=== PATIENT | female | born 1970 | race Caucasian/White ===

== ENCOUNTER → 2017-04-13 | Outpatient (CLI) | payer OTHER ==
[~2017-04-13] MED LIST: ASPI81CH PO; BUPR75 PO; GABA100; LITH300C
[2017-04-13 14:49] LABS: BASOPHILS ABSOLUTE AUTO 0.06 K/mm3 (0.00-0.23); BASOPHILS PERCENT AUTO 1 % (0-2); EOSINOPHILS ABSOLUTE AUTO 0.07 K/mm3 (0.00-0.68); EOSINOPHILS PERCENT AUTO 1 % (0-6); Hematocrit 44.8 % (33.0-51.0); Hemoglobin 15.1 g/dL (11.5-16.0); IMMATURE GRAN ABSOLUTE AUTO 0.05 K/mm3 (0.00-0.10); IMMATURE GRAN PERCENT AUTO 0 % (0-1); LYMPHOCYTES ABSOLUTE AUTO 1.11 K/mm3 (0.84-5.20); LYMPHOCYTES PERCENT AUTO 9 % (21-46); MONOCYTES ABSOLUTE AUTO 0.58 K/mm3 (0.16-1.47); MONOCYTES PERCENT AUTO 5 % (4-13); Mean Corpuscular HGB 32.3 pg (26.0-34.0); Mean Corpuscular HGB Conc 33.7 g/dL (31.5-36.5); Mean Corpuscular Volume 96 fL (80-100); Mean Platelet Volume 9.2 fL (9.1-12.4); NEUTROPHILS ABSOLUTE AUTO 10.43 K/mm3 (1.96-9.15); NEUTROPHILS PERCENT AUTO 85 % (41-73); Platelet Count 355 K/mm3 (150-400); RDW Coefficient Variation 13.2 % (11.7-14.2); RDW Standard Deviation 46.9 fL (35.1-46.3); Red Blood Cell Count 4.67 M/mm3 (3.80-5.20)
[2017-04-13 15:20] LABS: Alanine Aminotransfer (ALT/SGP 14 U/L (12-78); Albumin, Blood 4.1 g/dL (3.4-5.0); Albumin/Globulin Ratio 1.2 (0.8-1.8); Alk Phos 63 U/L (40-126); Anion Gap 11 mmol/L (6-16); Aspartate Aminotrans (AST/SGOT 12 U/L (12-37); Blood Urea Nitrogen 3 mg/dL (8-24); Bun/Creatinine Ratio 3.8 (12.0-20.0); CO2, Blood 21 mmol/L (21-32); Calcium, Blood 9.3 mg/dL (8.5-10.1); Chloride, Blood 105 mmol/L (98-108); Creatinine, Blood 0.78 mg/dL (0.40-1.00); Globulin, Blood 3.3 g/dL (2.2-4.0); Glomerular Filtration Rate >60 (60-); Glucose, Blood 77 mg/dL (70-99); Potassium, Blood 3.5 mmol/L (3.5-5.5); Sodium, Blood 137 mmol/L (136-145); Thyroid Stimulating Hormone 1.732 uIU/mL (0.360-4.800); Total Protein, Blood 7.4 g/dL (6.4-8.2)
== END | disposition home or self-care (01) ==
LOC: LAB SHORT 14:42
PROVIDERS: Family Medicine
DX: R55 Syncope and collapse (principal)
CPT/HCPCS: 80053; 84443; 85025

== ENCOUNTER → 2017-08-13 | Outpatient (CLI) | payer OTHER | END | disposition home or self-care (01) | LOC: OLS 11:41 → LAB SHORT 11:41 | PROVIDERS: Nurse Practitioner Women's Health | DX: Z12.72 Encounter for screening for malignant neoplasm of vagina (principal); Z91.89 Other specified personal risk factors, not elsewhere classified | CPT/HCPCS: 87624; G0123 ==

== ENCOUNTER → 2017-11-07 | Outpatient (CLI) | payer OTHER ==
[2017-11-07 11:23] LABS: Alanine Aminotransfer (ALT/SGP 47 U/L (12-78); Albumin, Blood 3.4 g/dL (3.4-5.0); Alk Phos 58 U/L (50-136); Anion Gap 9 mmol/L (6-16); Aspartate Aminotrans (AST/SGOT 28 U/L (12-37); Bilirubin, Total 0.2 mg/dL (0.1-1.0); Blood Urea Nitrogen 10 mg/dL (8-24); Bun/Creatinine Ratio 15.3 (12.0-20.0); CO2, Blood 24 mmol/L (21-32); Calcium, Blood 8.7 mg/dL (8.5-10.1); Chloride, Blood 111 mmol/L (98-108); Creatinine, Blood 0.66 mg/dL (0.40-1.00); Globulin, Blood 3.5 g/dL (2.2-4.0); Glomerular Filtration Rate >60 (60-); Glucose, Blood 82 mg/dL (70-99); Potassium, Blood 4.7 mmol/L (3.5-5.5); Sodium, Blood 144 mmol/L (136-145); Total Protein, Blood 6.9 g/dL (6.4-8.2)
== END ==
LOC: LAB SHORT 10:44 → LAB 10:44
PROVIDERS: Internal Medicine Hematology & Oncology
DX: M81.0 Age-related osteoporosis without current pathological fracture (principal)
CPT/HCPCS: 80053

== ENCOUNTER 2018-06-06 17:59 | Emergency (ER) | payer OTHER ==
[~2018-06-06] VITALS: Ht 157.5 cm; Wt 70.3 kg
[2018-06-06 18:36] LABS: BASOPHILS ABSOLUTE AUTO 0.05 K/mm3 (0.00-0.23); BASOPHILS PERCENT AUTO 1 % (0-2); EOSINOPHILS ABSOLUTE AUTO 0.23 K/mm3 (0.00-0.68); EOSINOPHILS PERCENT AUTO 3 % (0-6); Hematocrit 44.1 % (33.0-51.0); Hemoglobin 14.8 g/dL (11.5-16.0); IMMATURE GRAN ABSOLUTE AUTO 0.03 K/mm3 (0.00-0.10); IMMATURE GRAN PERCENT AUTO 0 % (0-1); LYMPHOCYTES ABSOLUTE AUTO 1.99 K/mm3 (0.84-5.20); LYMPHOCYTES PERCENT AUTO 24 % (21-46); MONOCYTES ABSOLUTE AUTO 0.75 K/mm3 (0.16-1.47); MONOCYTES PERCENT AUTO 9 % (4-13); Mean Corpuscular HGB 34.3 pg (26.0-34.0); Mean Corpuscular HGB Conc 33.6 g/dL (31.5-36.5); Mean Corpuscular Volume 102 fL (80-100); Mean Platelet Volume 9.6 fL (9.1-12.4); NEUTROPHILS ABSOLUTE AUTO 5.13 K/mm3 (1.96-9.15); NEUTROPHILS PERCENT AUTO 63 % (41-73); Platelet Count 235 K/mm3 (150-400); RDW Coefficient Variation 12.8 % (11.7-14.2); RDW Standard Deviation 48.2 fL (35.1-46.3); Red Blood Cell Count 4.32 M/mm3 (3.80-5.20); White Blood Cell Count 8.18 K/mm3 (4.00-11.30)
[2018-06-06 18:59] LABS: Alanine Aminotransfer (ALT/SGP 24 U/L (12-78); Albumin, Blood 2.9 g/dL (3.4-5.0); Albumin/Globulin Ratio 0.8 (0.8-1.8); Alk Phos 57 U/L (50-136); Anion Gap 4 mmol/L (6-16); Aspartate Aminotrans (AST/SGOT 25 U/L (12-37); Bilirubin, Total 0.4 mg/dL (0.1-1.0); Blood Urea Nitrogen 9 mg/dL (8-24); Bun/Creatinine Ratio 12.6 (12.0-20.0); CO2, Blood 27 mmol/L (21-32); Calcium, Blood 8.1 mg/dL (8.5-10.1); Chloride, Blood 109 mmol/L (98-108); Creatinine, Blood 0.72 mg/dL (0.40-1.00); Ethanol (Alcohol), Blood, Med <3 mg/dL; Globulin, Blood 3.7 g/dL (2.2-4.0); Glomerular Filtration Rate >60 (60-); Glucose, Blood 95 mg/dL (70-99); Potassium, Blood 3.7 mmol/L (3.5-5.5); Sodium, Blood 140 mmol/L (136-145); Total Protein, Blood 6.6 g/dL (6.4-8.2)
== END 2018-06-06 19:25 | disposition home or self-care (01) ==
LOC: ER 17:59
PROVIDERS: Emergency Medicine
DX: S09.90XA Unspecified injury of head, initial encounter (principal); S16.1XXA Strain of muscle, fascia and tendon at neck level, initial encounter; T14.8XXA Other injury of unspecified body region, initial encounter; E78.5 Hyperlipidemia, unspecified; F17.210 Nicotine dependence, cigarettes, uncomplicated; Z79.899 Other long term (current) drug therapy; Z79.82 Long term (current) use of aspirin; V49.9XXA Car occupant (driver) (passenger) injured in unspecified traffic accident, initial encounter
CPT/HCPCS: 36415; 70450; 71045; 72125; 80053; 85025; 93005; 93010; 99285-25; G0480

== ENCOUNTER 2018-07-21 14:55 | Observation (INO) | payer OTHER ==
[~2018-07-21] VITALS: Ht 154.9 cm; Wt 65.3 kg
[2018-07-21 15:53] LABS: BASOPHILS ABSOLUTE AUTO 0.02 K/mm3 (0.00-0.23); BASOPHILS PERCENT AUTO 0 % (0-2); EOSINOPHILS ABSOLUTE AUTO 0.21 K/mm3 (0.00-0.68); EOSINOPHILS PERCENT AUTO 3 % (0-6); Hematocrit 48.1 % (33.0-51.0); Hemoglobin 16.1 g/dL (11.5-16.0); IMMATURE GRAN ABSOLUTE AUTO 0.02 K/mm3 (0.00-0.10); IMMATURE GRAN PERCENT AUTO 0 % (0-1); LYMPHOCYTES ABSOLUTE AUTO 1.54 K/mm3 (0.84-5.20); LYMPHOCYTES PERCENT AUTO 22 % (21-46); MONOCYTES ABSOLUTE AUTO 0.69 K/mm3 (0.16-1.47); MONOCYTES PERCENT AUTO 10 % (4-13); Mean Corpuscular HGB 33.8 pg (26.0-34.0); Mean Corpuscular HGB Conc 33.5 g/dL (31.5-36.5); Mean Corpuscular Volume 101 fL (80-100); Mean Platelet Volume 9.9 fL (9.1-12.4); NEUTROPHILS ABSOLUTE AUTO 4.46 K/mm3 (1.96-9.15); NEUTROPHILS PERCENT AUTO 64 % (41-73); Platelet Count 268 K/mm3 (150-400); RDW Standard Deviation 48.4 fL (35.1-46.3); Red Blood Cell Count 4.77 M/mm3 (3.80-5.20); White Blood Cell Count 6.94 K/mm3 (4.00-11.30)
[2018-07-21 16:01] LABS: Alanine Aminotransfer (ALT/SGP 30 U/L (12-78); Albumin, Blood 3.2 g/dL (3.4-5.0); Albumin/Globulin Ratio 0.8 (0.8-1.8); Alk Phos 61 U/L (50-136); Anion Gap 8 mmol/L (6-16); Aspartate Aminotrans (AST/SGOT 44 U/L (12-37); Bilirubin, Total 0.6 mg/dL (0.1-1.0); Blood Urea Nitrogen 7 mg/dL (8-24); Bun/Creatinine Ratio 11.3 (12.0-20.0); CO2, Blood 23 mmol/L (21-32); Calcium, Blood 8.7 mg/dL (8.5-10.1); Chloride, Blood 110 mmol/L (98-108); Creatinine, Blood 0.62 mg/dL (0.40-1.00); Globulin, Blood 4.2 g/dL (2.2-4.0); Glomerular Filtration Rate >60 (60-); Glucose, Blood 87 mg/dL (70-99); Potassium, Blood 3.8 mmol/L (3.5-5.5); Sodium, Blood 141 mmol/L (136-145); Total Protein, Blood 7.4 g/dL (6.4-8.2)
[2018-07-21 16:06] LABS: Valproic Acid 121.9 ug/mL (50.0-100.0)
[2018-07-21] MEDS ORDERED: DIVA500ER PO (17:51)
[2018-07-21] MEDS ORDERED: CLON1 PO (17:52)
[2018-07-21] MEDS ORDERED: ZIPR40 PO (17:52)
[2018-07-21] MEDS ORDERED: Benztropine Mesy1 MG (17:54)
[2018-07-21 18:48] LABS: U Amphetamine Screen Not Detected; U Barbituate Screen Not Detected; U Benzodiazapine Screen Not Detected; U Buprenorphine Screen Not Detected; U Cannabinoids Screen DETECTED; U Cocaine Screen Not Detected; U Methadone Screen Not Detected; U Methamphetamine Screen Not Detected; U Opiates Screen Not Detected; U Oxycodone Screen Not Detected; U Phencyclidine Screen Not Detected; U Propoxyphene Screen Not Detected
[2018-07-21] MEDS ORDERED: DIVA250EC PO (20:09)
[2018-07-22 04:33] LABS: Alanine Aminotransfer (ALT/SGP 26 U/L (12-78); Albumin, Blood 2.7 g/dL (3.4-5.0); Albumin/Globulin Ratio 0.8 (0.8-1.8); Alk Phos 53 U/L (50-136); Anion Gap 9 mmol/L (6-16); Aspartate Aminotrans (AST/SGOT 37 U/L (12-37); Bilirubin, Total 0.6 mg/dL (0.1-1.0); Blood Urea Nitrogen 7 mg/dL (8-24); Bun/Creatinine Ratio 13.4 (12.0-20.0); CO2, Blood 19 mmol/L (21-32); Calcium, Blood 8.1 mg/dL (8.5-10.1); Chloride, Blood 115 mmol/L (98-108); Creatinine, Blood 0.52 mg/dL (0.40-1.00); Globulin, Blood 3.6 g/dL (2.2-4.0); Glomerular Filtration Rate >60 (60-); Glucose, Blood 58 mg/dL (70-99); Potassium, Blood 3.9 mmol/L (3.5-5.5); Sodium, Blood 143 mmol/L (136-145); Total Protein, Blood 6.3 g/dL (6.4-8.2)
--- NOTE | 2018-07-22 05:06 | NUR ---
UPDATE PATIENT'S BLOOD SUGAR WAS 58 THIS AM WITH MORNING LABS. PATIENT GIVEN ORANGE JUICE AND CHEESE AND CRACKERS. PATIENT EATING HER SNACK AT THIS TIME. DR SCHROEDER CALLED AND NOTIFIED OF PATIENT'S BLOOD SUGAR. HE ORDERED FOR BLOOD SUGARS TO BE CHECKED Q2H AT THIS TIME. WILL CONTINUE TO MONITOR PATIENT.
--- NOTE | 2018-07-22 07:49 | NUR ---
SHIFT SUMMARY PATIENT ADMITTED EARLIER THIS SHIFT. PATIENT ABLE TO TRANSFER SELF FROM THE GURNEY TO THE BED WITH SBA. PATIENT VERY FIDGITY WITH HER HANDS AND PULLS AND PICKS AT EVERYTHING. PATIENT MOVES ABOUT IN BED FREQUENTLY TURNING OVER AND OVER AND GETTING TANGLED IN HER BLANKETS AND IV TUBING. PATIENT SETS OFF THE BED ALARM FREQUENTLY. PATIENT STATED THAT SHE SEES CATS IN THE ROOM AND IS TRYING TO GET UP TO SEE THE CATS. PATIENT STATES SHE HAS BEEN SEEING THINGS LIKE THE CATS RECENTLY. SHE STATES SHE KNOWS THEY'RE NOT REAL BUT SHE STILL FEELS THE NEED TO GET UP AND CHECK. PATIENT UNABLE TO GIVE THE CORRECT DATE AND YEAR. PATIENT STATED THAT MATI WAS THE PRESIDENT AND WHEN ASKED IF SHE KNEW WHERE SHE WAS SHE STATED, "I'M BY THE CLOCK ON THE WALL." PATIENT REORIENTED ACCORDINGLY EACH TIME. IV FLUIDS RUNNING PER ORDERS. PATIENT APPEARED TO SLEEP FOR APPROX 2 HOURS LAST NIGHT. PATIENT CURRENTLY RESTING IN BED WATCHING TV. BED ALARM ON AND CALL LIGHT WITHIN REACH. REPORT GIVEN TO ONCOMING RN.
--- NOTE | 2018-07-22 08:38 | NUR ---
assumed care of pt at approx 0700.
--- NOTE | 2018-07-22 12:10 | NUR ---
ASSUMED CARE OF PATIENT, REPORT RECEIVED FROM CAT BRONSON IN PCU. PATIENT TRANSFERRED FROM PCU 2 TO ROOM 346. PATIENT CALM AND COOPERATIVE WITH CARE. WHEN ASKED WHERE SHE IS HER RESPONSE WAS 'A DONUT SHOP." ORIENTED TO SELF AND FAMILY. INDEPENDENT IN ROOM.
--- NOTE | 2018-07-22 17:20 | NUR ---
PATIENT ORIENTED TO SELF AND FAMILY ONLY. PATIENT UP WALKING THE HALLS AND CONTINUES TO TRY AND WALK INTO OTHER PATIENT ROOMS. PARENTS AND BOYFRIEND STAYING AT BEDSIDE TO ASSIST WITH PATIENT ROAMING. PATIENT HAS SLEPT SINCE FAMILY ARRIVED. PATIENT IS INDEPENDENT IN ROOM AND STEADY ON FEET. TOLERATING REGULAR DIET. PSYCH CONSULT COMPLETED TODAY.
[2018-07-22 18:31] LABS: Valproic Acid 62.4 ug/mL (50.0-100.0)
[2018-07-23 04:53] LABS: Hematocrit 43.4 % (33.0-51.0); Hemoglobin 14.9 g/dL (11.5-16.0); Mean Corpuscular HGB 34.2 pg (26.0-34.0); Mean Corpuscular HGB Conc 34.3 g/dL (31.5-36.5); Mean Corpuscular Volume 100 fL (80-100); Mean Platelet Volume 9.7 fL (9.1-12.4); Platelet Count 230 K/mm3 (150-400); Red Blood Cell Count 4.36 M/mm3 (3.80-5.20); White Blood Cell Count 5.79 K/mm3 (4.00-11.30)
[2018-07-23 05:14] LABS: Albumin, Blood 2.7 g/dL (3.4-5.0); Anion Gap 6 mmol/L (6-16); Blood Urea Nitrogen 11 mg/dL (8-24); Bun/Creatinine Ratio 17.8 (12.0-20.0); CO2, Blood 24 mmol/L (21-32); Calcium, Blood 8.9 mg/dL (8.5-10.1); Chloride, Blood 112 mmol/L (98-108); Creatinine, Blood 0.62 mg/dL (0.40-1.00); Glomerular Filtration Rate >60 (60-); Glucose, Blood 77 mg/dL (70-99); Phosphorus, Blood 4.5 mg/dL (2.5-4.9); Potassium, Blood 3.5 mmol/L (3.5-5.5); Sodium, Blood 142 mmol/L (136-145); Valproic Acid 78.6 ug/mL (50.0-100.0)
--- NOTE | 2018-07-23 05:32 | NUR ---
SHIFT SUMMARY PT SLEPT WELL, MOTHER REMAINED WITH PT T/O THE NIGHT. PT ALERT, BUT UNABLE TO DETERMINE THE YEAR. STATES SHE WOULD LIKE TO RETURN HOME TODAY. NO ACUTE EVENTS NOTED DURING THE NIGHT. WILL CONTINUE TO MONITOR.
[2018-07-23] MEDS ORDERED: ZIPR60 PO (10:22)
--- NOTE | 2018-07-23 11:28 | NUR ---
DISCHARGE DISCHARGE MEDICATIONS AND INSTRUCTIONS EXPLAINED TO PATIENT. FOLLOW UP APPOINTMENTS WITH PCP AND PNP SCHEDULED BY CARE MANAGEMENT. IV REMOVED WITHOUT DIFFICULTY. BELONGINGS WITH PATIENT. PATIENT TRANSFERED TO PRIVATE VEHICLE VIA WHEELCHAIR ESCORT.
== END 2018-07-23 11:27 | disposition home or self-care (01) ==
LOC: ER 14:55 → PCU 14:56 → MEDS 14:56 → PCU 14:56 → MEDS 20:38 → PCU 20:50 → MEDS 07-22 12:13 → ENPENDDIS 07-23 10:04 → MEDS 07-23 11:27
PROVIDERS: Emergency Medicine; Internal Medicine; Physician Assistant; ADMIT Hospitalist
DX: G92 Toxic encephalopathy (principal); T42.6X5A Adverse effect of other antiepileptic and sedative-hypnotic drugs, initial encounter; F31.9 Bipolar disorder, unspecified; F41.9 Anxiety disorder, unspecified; E16.2 Hypoglycemia, unspecified; G40.909 Epilepsy, unspecified, not intractable, without status epilepticus; F12.10 Cannabis abuse, uncomplicated; E78.5 Hyperlipidemia, unspecified; F17.210 Nicotine dependence, cigarettes, uncomplicated; Z79.899 Other long term (current) drug therapy
CPT/HCPCS: 36415; 70450; 80053; 80069; 80164; 82140; 82947; 85025; 85027; 93005; 93010; 96361; 96374; 96375; 99285-25; J1650; J2310; J7030; P9612

== ENCOUNTER → 2018-10-29 | Outpatient (CLI) | payer OTHER ==
[~2018-10-29] MED LIST changes: +Benztropine Mesy1 MG; +CLON1 PO; +DIVA250EC PO; +DIVA500ER PO; +ZIPR40 PO; +ZIPR60 PO
[2018-10-30 14:07] LABS: HPV 16 Negative (Negative); HPV 18 Negative (Negative); HPV OTHER HR TYPES Negative (Negative)
== END | disposition home or self-care (01) ==
LOC: LAB SHORT 12:41 → LAB 12:41
PROVIDERS: Nurse Practitioner Women's Health
DX: Z12.72 Encounter for screening for malignant neoplasm of vagina (principal); B97.7 Papillomavirus as the cause of diseases classified elsewhere; Z91.89 Other specified personal risk factors, not elsewhere classified
CPT/HCPCS: 87624; G0123

== ENCOUNTER 2019-08-15 13:42 | Emergency (ER) | payer OTHER ==
[~2019-08-15] VITALS: Ht 157.5 cm; Wt 65.8 kg
== END 2019-08-15 15:38 | disposition left against medical advice (07) ==
LOC: ER 13:42
DX: Z53.21 Procedure and treatment not carried out due to patient leaving prior to being seen by health care provider (principal)
CPT/HCPCS: 94060; 94726; 94729; 99281

== ENCOUNTER → 2020-01-22 | Outpatient (CLI) | payer OTHER ==
[~2020-01-22] MED LIST changes: +CLONAZEPAM1 MG PO; +DIVA500EC PO; +ESCI20 PO; +OLAN7.5 PO; +POTA10T PO; +Vitamin D2000 UNIT PO
[2020-01-22 10:42] LABS: Alanine Aminotransfer (ALT/SGP 22 U/L (12-78); Albumin, Blood 3.2 g/dL (3.4-5.0); Albumin/Globulin Ratio 0.8 (0.8-1.8); Alk Phos 74 U/L (50-136); Anion Gap 8 mmol/L (6-16); Aspartate Aminotrans (AST/SGOT 31 U/L (12-37); Bilirubin, Total 0.3 mg/dL (0.1-1.0); Blood Urea Nitrogen 10 mg/dL (8-24); Bun/Creatinine Ratio 18.5 (12.0-20.0); CO2, Blood 26 mmol/L (21-32); Calcium, Blood 8.9 mg/dL (8.5-10.1); Chloride, Blood 109 mmol/L (98-108); Creatinine, Blood 0.54 mg/dL (0.40-1.00); Glomerular Filtration Rate >60 (60-); Glucose, Blood 73 mg/dL (70-99); Phosphorus, Blood 3.5 mg/dL (2.5-4.9); Potassium, Blood 3.9 mmol/L (3.5-5.5); Sodium, Blood 143 mmol/L (136-145); Total Protein, Blood 7.2 g/dL (6.4-8.2)
== END | disposition home or self-care (01) ==
LOC: LAB 10:20 → LAB SHORT 10:20
PROVIDERS: Internal Medicine Hematology & Oncology
DX: M81.0 Age-related osteoporosis without current pathological fracture (principal)
CPT/HCPCS: 80053; 84100

== ENCOUNTER 2020-06-13 16:38 | Inpatient (IN) | payer OTHER ==
[~2020-06-13] VITALS: Ht 162.6 cm; Wt 48.1 kg
[~2020-06-13 16:38] MED LIST changes: -DIVA500EC PO; -ESCI20 PO; -OLAN7.5 PO; -Vitamin D2000 UNIT PO
[2020-06-13 17:15] LABS: BASOPHILS ABSOLUTE AUTO 0.02 K/mm3 (0.00-0.23); BASOPHILS PERCENT AUTO 0 % (0-2); EOSINOPHILS ABSOLUTE AUTO 0.01 K/mm3 (0.00-0.68); EOSINOPHILS PERCENT AUTO 0 % (0-6); IMMATURE GRAN ABSOLUTE AUTO 0.07 K/mm3 (0.00-0.10); IMMATURE GRAN PERCENT AUTO 1 % (0-1); LYMPHOCYTES ABSOLUTE AUTO 1.22 K/mm3 (0.84-5.20); LYMPHOCYTES PERCENT AUTO 19 % (21-46); MONOCYTES ABSOLUTE AUTO 0.23 K/mm3 (0.16-1.47); MONOCYTES PERCENT AUTO 4 % (4-13); Mean Corpuscular HGB 32.2 pg (26.0-34.0); Mean Corpuscular HGB Conc 33.3 g/dL (31.5-36.5); Mean Corpuscular Volume 97 fL (80-100); Mean Platelet Volume 9.1 fL (9.1-12.4); NEUTROPHILS ABSOLUTE AUTO 4.81 K/mm3 (1.96-9.15); NEUTROPHILS PERCENT AUTO 76 % (41-73); Platelet Count 288 K/mm3 (150-400); RDW Coefficient Variation 13.2 % (11.7-14.2); RDW Standard Deviation 46.6 fL (35.1-46.3); Red Blood Cell Count 4.66 M/mm3 (3.80-5.20); White Blood Cell Count 6.36 K/mm3 (4.00-11.30)
[2020-06-13 17:20] LABS: Source, Urine Catheter
[2020-06-13 17:31] LABS: Alanine Aminotransfer (ALT/SGP 22 U/L (12-78); Albumin, Blood 3.5 g/dL (3.4-5.0); Albumin/Globulin Ratio 0.9 (0.8-1.8); Alk Phos 64 U/L (50-136); Anion Gap 7 mmol/L (6-16); Aspartate Aminotrans (AST/SGOT 23 U/L (12-37); Bilirubin, Total 0.4 mg/dL (0.1-1.0); Blood Urea Nitrogen 9 mg/dL (8-24); Bun/Creatinine Ratio 17.8 (12.0-20.0); CO2, Blood 24 mmol/L (21-32); CPK Creatine Kinase 349 U/L (26-193); Calcium, Blood 8.2 mg/dL (8.5-10.1); Chloride, Blood 111 mmol/L (98-108); Creatinine, Blood 0.51 mg/dL (0.40-1.00); Ethanol (Alcohol), Blood, Med <3 mg/dL; Globulin, Blood 3.7 g/dL (2.2-4.0); Glomerular Filtration Rate >60 (60-); Glucose, Blood 84 mg/dL (70-99); Potassium, Blood 3.1 mmol/L (3.5-5.5); Salicylate 7.4 mg/dL (2.8-20.0); Sodium, Blood 142 mmol/L (136-145); Total Protein, Blood 7.2 g/dL (6.4-8.2)
[2020-06-13 17:51] LABS: Acetaminophen, Random 69.7 ug/mL (10.0-30.0); Valproic Acid 244.2 ug/mL (50.0-100.0)
[2020-06-13 17:55] LABS: Appearance, Urine Clear (Clear); Bilirubin, Urine Neg (Neg); Blood, Urine 4+ (Neg); Color, Urine Yellow (P-Yellow); Glucose Qualitative, Urine Neg (Neg); Ketones, Urine Neg (Neg); Leukocyte Esterase, Urine Neg (Neg); Nitrite, Urine Neg (Neg); Protein, Urine Neg (Neg); Specific Gravity, Urine 1.015 (1.003-1.022); Urobilinogen, Urine NORM (Normal)
[2020-06-13 18:16] LABS: Creatine Kinase MB 6.7 ng/mL (0.0-3.6); Creatine Kinase MB Index 1.9 (0.0-4.0)
[2020-06-13 18:34] LABS: Bacteria Few /hpf; Red Blood Cells, Urine 25-50 /hpf (0-2); Squamous Epithelial Cells Mod /hpf (Few); White Blood Cells, Urine 0-2 /hpf (0-5)
[2020-06-13 18:40] LABS: U Amphetamine Screen Not Detected; U Barbituate Screen Not Detected; U Benzodiazapine Screen Not Detected; U Buprenorphine Screen Not Detected; U Cannabinoids Screen DETECTED; U Cocaine Screen Not Detected; U Methadone Screen Not Detected; U Methamphetamine Screen Not Detected; U Opiates Screen Not Detected; U Oxycodone Screen Not Detected; U Phencyclidine Screen Not Detected
[2020-06-13 18:42] LABS: U Propoxyphene Screen Not Detected
[2020-06-13] MEDS ORDERED: CLON1 PO (19:07)
[2020-06-13] MEDS ORDERED: ESCI20 PO (19:07)
[2020-06-13] MEDS ORDERED: Vitamin D2000 UNIT PO (19:07)
[2020-06-13] MEDS ORDERED: DIVA500ER PO (19:07)
[2020-06-13] MEDS ORDERED: OLANZAPINE PO (19:09)
[2020-06-13 21:38] LABS: PCO2 Arterial 30.5 mmHg (35-45); PO2 Arterial 64.6 mmHg (80-100); pH Blood Arterial 7.41 (7.35-7.45)
[2020-06-13 22:01] LABS: Acetaminophen, Random 37.8 ug/mL (10.0-30.0); Alanine Aminotransfer (ALT/SGP 27 U/L (12-78); Albumin, Blood 2.5 g/dL (3.4-5.0); Albumin/Globulin Ratio 0.8 (0.8-1.8); Alk Phos 44 U/L (50-136); Anion Gap 14 mmol/L (6-16); Aspartate Aminotrans (AST/SGOT 34 U/L (12-37); Bilirubin, Total 0.5 mg/dL (0.1-1.0); Blood Urea Nitrogen 9 mg/dL (8-24); Bun/Creatinine Ratio 21.4 (12.0-20.0); CO2, Blood 19 mmol/L (21-32); Calcium, Blood 6.9 mg/dL (8.5-10.1); Chloride, Blood 114 mmol/L (98-108); Creatinine, Blood 0.42 mg/dL (0.40-1.00); Glomerular Filtration Rate >60 (60-); Glucose, Blood 145 mg/dL (70-99); Potassium, Blood 3.4 mmol/L (3.5-5.5); Sodium, Blood 147 mmol/L (136-145); Total Protein, Blood 5.5 g/dL (6.4-8.2)
[2020-06-13 22:09] LABS: Valproic Acid 187.4 ug/mL (50.0-100.0)
--- NOTE | 2020-06-13 22:15 | NUR ---
ADMIT ASSESSMENT PT ARRIVED VIA GURNEY FROM ER. TRANSFERED TO BED BY STAFF AND SLIDER SHEET. PT NONRESPONSIVE EXCEPT WITH MOVE ARMS SLIGHTLY TO PAIN AND ORAL CARE. LUNGS CLEAR ON ROOMAIR. RESP EVEN AND NONLABORED. SNORING HEARD AT TIMES. OCC NONPRODUCTIVE COUGH NOTED. HEART RATE REGULAR, SINUS TACH. BP STABLE ON LEVOPHED AT 6 MCQ/MIN, WILL TITRATE TO KEEP MAP GREATER THAN 65. NO EDEMA. BT+ ABD SOFT AND FLAT. FERGUSON CATH PATENT DRAINING YELLOW URINE. IV 18G TO RIGHT FOREARM WITH LEVOPHED AT 6 MCQ/MIN, SITE CLEAR. IV 20G TO LEFT AC WITH LR AT 125 ML/HR AND KCL IVPB INFUSING, SITE CLEAR. IV 20G TO LEFT WRIST/FOREARM WITH NAC AT 128 ML/HR THIS IS THE SECOND BAG. COCCYX RED BUT ABLE TO TIMOTHY, PHOTO DONE AND COVERED WITH FOAM DRSG.
[2020-06-13 23:57] LABS: Salicylate 5.8 mg/dL (2.8-20.0)
[2020-06-14 01:38] LABS: Hematocrit 39.7 % (33.0-51.0); Hemoglobin 13.7 g/dL (11.5-16.0); Mean Corpuscular HGB 32.2 pg (26.0-34.0); Mean Corpuscular HGB Conc 34.5 g/dL (31.5-36.5); Mean Corpuscular Volume 93 fL (80-100); Mean Platelet Volume 9.1 fL (9.1-12.4); Platelet Count 288 K/mm3 (150-400); RDW Coefficient Variation 13.2 % (11.7-14.2); RDW Standard Deviation 45.3 fL (35.1-46.3); Red Blood Cell Count 4.25 M/mm3 (3.80-5.20); White Blood Cell Count 12.74 K/mm3 (4.00-11.30)
[2020-06-14 01:57] LABS: Alanine Aminotransfer (ALT/SGP 33 U/L (12-78); Albumin, Blood 2.7 g/dL (3.4-5.0); Albumin/Globulin Ratio 0.8 (0.8-1.8); Alk Phos 50 U/L (50-136); Anion Gap 10 mmol/L (6-16); Aspartate Aminotrans (AST/SGOT 45 U/L (12-37); Blood Urea Nitrogen 9 mg/dL (8-24); Bun/Creatinine Ratio 19.7 (12.0-20.0); CO2, Blood 20 mmol/L (21-32); Calcium, Blood 7.3 mg/dL (8.5-10.1); Chloride, Blood 114 mmol/L (98-108); Creatinine, Blood 0.46 mg/dL (0.40-1.00); Globulin, Blood 3.2 g/dL (2.2-4.0); Glomerular Filtration Rate >60 (60-); Glucose, Blood 95 mg/dL (70-99); Magnesium, Blood 1.9 mg/dL (1.6-2.4); Potassium, Blood 3.2 mmol/L (3.5-5.5); Sodium, Blood 144 mmol/L (136-145); Total Protein, Blood 5.9 g/dL (6.4-8.2)
--- NOTE | 2020-06-14 05:34 | NUR ---
SHIFT SUMMARY PT ADMITTED TO ICU FROM ER DURING THE NIGHT. NO WAKING UP EVEN TO PAINFUL STIMULI ON ADMISSION. PT NOW MOANING WITH PAINFUL STIMULI. BUT NOT FOLLOWING INSTRUCTIONS. PT WAS ON LEVOPHED WHEN ARRIVED FROM ER. LEVOPHED NOW OFF. 3RD BAG OF NAC INFUSING. VSS. LABS IMPROVING. SPOKEN WITH POISON CONTROL SEVERAL TIMES DURING THE NIGHT. POTASSIUM LOW THIS AM 3.2. 40 MEQ KCL IVPB INFUSING. REPORT TO ON COMING NURSE
[2020-06-14 10:17] LABS: Valproic Acid 136.2 ug/mL (50.0-100.0)
[2020-06-14 14:21] LABS: International Normalized Ratio 1.43
[2020-06-14 14:37] LABS: Acetaminophen, Random 23.6 ug/mL (10.0-30.0); Alanine Aminotransfer (ALT/SGP 29 U/L (12-78); Albumin, Blood 2.4 g/dL (3.4-5.0); Albumin/Globulin Ratio 0.8 (0.8-1.8); Alk Phos 48 U/L (50-136); Aspartate Aminotrans (AST/SGOT 40 U/L (12-37); Bilirubin, Direct 0.2 mg/dL (0.0-0.3); Bilirubin, Total 1.2 mg/dL (0.1-1.0); Total Protein, Blood 5.4 g/dL (6.4-8.2)
[2020-06-14 14:41] LABS: Valproic Acid 243.4 ug/mL (50.0-100.0)
[2020-06-14 18:26] LABS: Alanine Aminotransfer (ALT/SGP 28 U/L (12-78); Albumin, Blood 2.6 g/dL (3.4-5.0); Albumin/Globulin Ratio 0.8 (0.8-1.8); Alk Phos 53 U/L (50-136); Anion Gap 8 mmol/L (6-16); Aspartate Aminotrans (AST/SGOT 41 U/L (12-37); Blood Urea Nitrogen 7 mg/dL (8-24); CO2, Blood 20 mmol/L (21-32); Calcium, Blood 7.8 mg/dL (8.5-10.1); Chloride, Blood 114 mmol/L (98-108); Globulin, Blood 3.2 g/dL (2.2-4.0); Glomerular Filtration Rate >60 (60-); Glucose, Blood 83 mg/dL (70-99); Potassium, Blood 3.3 mmol/L (3.5-5.5); Sodium, Blood 142 mmol/L (136-145); Total Protein, Blood 5.8 g/dL (6.4-8.2)
[2020-06-14 18:42] LABS: Valproic Acid 269.3 ug/mL (50.0-100.0)
[2020-06-14 18:57] LABS: PCO2 Arterial 33.9 mmHg (35-45); PO2 Arterial 91.1 mmHg (80-100)
--- NOTE | 2020-06-14 19:00 | NUR ---
ASSESSMENT/ASSUMED CARE PT INTUBATED AND PLACED ON [facility]. INTUBATED WITH 7.5 ET TUBE 22 CM AT TEETH. LUNGS CLEAR BUT DECREASED IN THE BASES. VENT SETTINGS AC 14 TV 350 PEEP 5 FIO2 35%. OG PLACED WITH DIFFICULTY, AND CLAMPED. CXR DONE. PT MED WITH ETOMIDATE AND SUCCINYLCHOLINE FOR INTUBATION. BEFORE SEDATION PT NONRESPONSIVE TO PAINFUL STIMULI. PLACED ON PROPOFOL GTT FOR SEDATION. FERGUSON CATH PATENT DRAINING YELLOW URINE. PT TO GO FOR HEAD CT AND THAN HAVE DIALYSIS CATH PLACED.
--- NOTE | 2020-06-14 19:55 | NUR ---
SUMMARY PT HAS BEEN UNRESPONSIVE THROUGH THE SHIFT. SMALL AMOUNT OF MOVEMENT NOTED A FEW TIMES, PT WOULD ATTEMPT TO GRAB AT THE AIR,PUT LEGS OVER THE EDGE OF THE BED AND APPEARED TO ATTEMPT VERBAL COMMUNICATION, NO CLEAR SPEECHNOTED, EYES REMAINED CLOSED. SHE HAS BEEN ON RA UNTIL APROX 1800 DUE TO INCREASED WOB, RESP RATE AND SPO2 91% DOWN FROM 97%, NO GAG RESPONSE NOTED WITH ORAL CARE. NOTIFIED THAT PT'S TONGUE APPEARED TO LOOK SWOLLEN, SHE EVALUATED THE TONGUE & RESP STATUS. PULMONARY CONSULT PLACED, CT ORDERED. INTUBATION INITIATIED PER VERBAL ORDERS TO REVENUE CYCLE CONSULTANT. NOC RN IN THE ROOM AT TIME OF INTUBATION.REPORT GIVEN.
--- NOTE | 2020-06-14 20:00 | NUR ---
HEAD CT PT TRANSPORTED TO CT VIA BED WITH RT AND THIS RN. HEAD CT DONE. PT BACK TO ROOM. DR MCCAULEY HERE TO PLACE DIALYSIS CATH.
--- NOTE | 2020-06-14 20:20 | NUR ---
DIALYSIS DR MCCAULEY PLACED DIALYSIS CATH TO RIGHT IJ WITHOUT DIFFICULTY. CXR DONE AND DR MCCAULEY CONFIRMED PLACEMENT.
[2020-06-14 21:17] LABS: Albumin, Blood 2.2 g/dL (3.4-5.0); Anion Gap 6 mmol/L (6-16); Blood Urea Nitrogen 6 mg/dL (8-24); Bun/Creatinine Ratio 12.1 (12.0-20.0); CO2, Blood 22 mmol/L (21-32); Calcium, Blood 7.4 mg/dL (8.5-10.1); Chloride, Blood 115 mmol/L (98-108); Glomerular Filtration Rate >60 (60-); Glucose, Blood 85 mg/dL (70-99); Magnesium, Blood 1.7 mg/dL (1.6-2.4); Sodium, Blood 143 mmol/L (136-145)
[2020-06-14 21:44] LABS: Valproic Acid 231.6 ug/mL (50.0-100.0)
--- NOTE | 2020-06-14 23:00 | NUR ---
DIALYSIS DR LARA AND FINISHING RANGE SUPERVISOR HERE. PT TO RECEIVE DIALYSIS TONIGHT.
--- NOTE | 2020-06-15 00:38 | NUR ---
VENT SETTINGS PT DOUBLE STACKING BREATHS, INCREASED SEDATION OF PROPOFOL TO 35 MCQ/KG/MIN. RT CHANGED VENT SETTINGS TO PRESSURE SUPPORT 10/5 FIO2 25% MIN VENT 9.5. PT TOLERATING VENT BETTER WITH CHANGED SETTINGS.
--- NOTE | 2020-06-15 02:29 | NUR ---
DIALYSIS CALLED IN STAT TO GIVE THE PT A 2 HOUR TX. LITTLE TO NO FLUID REMOVAL. STARTED WITH NO HEPARIN. WITHIN 10 MIN THE MACHINE STARTED ALARM WITH LOW ART PRESSURE AND HIGH RADHA PRESSURE. FLUSHED THE LINE WITH SALINE, AFTER A COUPLE OF MINUTES STARTED DOING THE SAME THING AGAIN. TRIED FLUSHING IT WITH NS. IT CONTINUED DOING THE SAME THING. RETURNED BLOOD BEFORE IT CLOTTED COMPLETELY. SETUP NEW LINES AND DIALYZER. GAVE A BOLUS OF 2.0 HEPARIN THROUGHOUT THE SYSTEM AND RESTARTED THE TX WITH 2.0 HEPARIN AN HOUR IT RAN 350 FOR A WHILE THEN 300 BFR, SLOWLY DECREASED TO 200. COMPLETED 2HOUR TX AND RETURNED BLOOD PER PROTOCAL. ENDED UP GIVING THE PT 1 LITER OF NS.
[2020-06-15 02:43] LABS: BASOPHILS ABSOLUTE AUTO 0.01 K/mm3 (0.00-0.23); BASOPHILS PERCENT AUTO 0 % (0-2); EOSINOPHILS PERCENT AUTO 0 % (0-6); Hematocrit 37.6 % (33.0-51.0); Hemoglobin 13.3 g/dL (11.5-16.0); IMMATURE GRAN ABSOLUTE AUTO 0.02 K/mm3 (0.00-0.10); IMMATURE GRAN PERCENT AUTO 0 % (0-1); LYMPHOCYTES ABSOLUTE AUTO 0.88 K/mm3 (0.84-5.20); LYMPHOCYTES PERCENT AUTO 12 % (21-46); MONOCYTES ABSOLUTE AUTO 0.28 K/mm3 (0.16-1.47); MONOCYTES PERCENT AUTO 4 % (4-13); Mean Corpuscular HGB 32.4 pg (26.0-34.0); Mean Corpuscular HGB Conc 35.4 g/dL (31.5-36.5); Mean Corpuscular Volume 92 fL (80-100); Mean Platelet Volume 9.3 fL (9.1-12.4); NEUTROPHILS ABSOLUTE AUTO 6.19 K/mm3 (1.96-9.15); NEUTROPHILS PERCENT AUTO 84 % (41-73); Platelet Count 203 K/mm3 (150-400); RDW Coefficient Variation 13.3 % (11.7-14.2); RDW Standard Deviation 45.1 fL (35.1-46.3); White Blood Cell Count 7.38 K/mm3 (4.00-11.30)
[2020-06-15 03:02] LABS: International Normalized Ratio 2.12; Prothrombin Time Results 21.7 Sec (9.7-11.5)
[2020-06-15 03:07] LABS: Alanine Aminotransfer (ALT/SGP 27 U/L (12-78); Albumin, Blood 2.3 g/dL (3.4-5.0); Albumin/Globulin Ratio 0.7 (0.8-1.8); Alk Phos 48 U/L (50-136); Anion Gap 8 mmol/L (6-16); Aspartate Aminotrans (AST/SGOT 32 U/L (12-37); Bilirubin, Total 0.7 mg/dL (0.1-1.0); Blood Urea Nitrogen 2 mg/dL (8-24); Bun/Creatinine Ratio 6.3 (12.0-20.0); CO2, Blood 26 mmol/L (21-32); Calcium, Blood 7.8 mg/dL (8.5-10.1); Chloride, Blood 110 mmol/L (98-108); Creatinine, Blood 0.32 mg/dL (0.40-1.00); Globulin, Blood 3.1 g/dL (2.2-4.0); Glomerular Filtration Rate >60 (60-); Glucose, Blood 109 mg/dL (70-99); Magnesium, Blood 1.8 mg/dL (1.6-2.4); Potassium, Blood 2.8 mmol/L (3.5-5.5); Sodium, Blood 144 mmol/L (136-145); Total Protein, Blood 5.4 g/dL (6.4-8.2)
--- NOTE | 2020-06-15 03:07 | NUR ---
PT GIVEN LIQUID CHARCOAL AND FLUSHED WITH 180 ML WATER. PT THAN HAD SMALL EMESIS. LINEN CHANGE AND ORAL CARE DONE.
[2020-06-15 03:12] LABS: Alanine Aminotransfer (ALT/SGP 24 U/L (12-78); Aspartate Aminotrans (AST/SGOT 33 U/L (12-37); Phosphorus, Blood 0.8 mg/dL (2.5-4.9); Valproic Acid 165.5 ug/mL (50.0-100.0)
[2020-06-15 04:18] LABS: PCO2 Arterial 28.9 mmHg (35-45); pH Blood Arterial 7.49 (7.35-7.45)
--- NOTE | 2020-06-15 04:45 | NUR ---
POISON CONTROL REPORT GIVEN TO POISON CONTROL, REVIEWED LABS AND VS WITH POISON CONTROL. THEY REQUESTED PT CONT ON ANOTHER BAG OF ACEYLCYSTEINE DUE TO INR 2.12 AND REPEAT LFT, INR, TYLENOL LEVEL AND AMMONIA LEVEL TWO HOURS BEFORE THE END OF THAT BAG. ALSO, TO REPEAT AMMONIA LEVEL AT 0600 THIS AM WITH VALPROIC ACID LEVEL.
--- NOTE | 2020-06-15 05:04 | NUR ---
CALL TO MD CALL TO DR MCCAULEY REGARDING HYPOTENSION. RECEIVED ORDER FOR ONE LITER LR BOLUS.
--- NOTE | 2020-06-15 06:12 | NUR ---
SHIFT SUMMARY PT INTUBATED AND PLACED ON [facility] V[facility] AT BEGINNING OF SHIFT. VENT SETTINGS AC 14 TV 350 PEEP 5 FIO2 35%, CHANGED DURING THE NIGHT TO SPON 10/5 FIO2 25% THAN CHANGED TO 8/5 FIO2 25% AFTER ABG THIS AM. LUNGS CLEAR BUT DECREASED IN THE BASES. PT TAKEN FOR HEAD CT WHICH SHOWED "NO EDVIDENCE OF ACUTE INTRACRANIAL ABNORMALITY". DIALYSIS CATH PLACED BY DR MCCAULEY TO RIGHT IJ THAN PT STARTED ON DIALYSIS. ONE LITER BOLUS GIVEN DURING DIALYSIS AND HEPARIN DUE TO CLOTTING OF DIALYSIS MACHINE. PT GIVEN ONE LITER BOLUS OF LR AFTER DIALYSIS CATH PLACED AND SECOND BOLUS LR GIVEN THIS MORNING DUE TO HYPOTENSION. PT SEDATED WITH PROPOFOL FOR VENT TOLERANCE CURRENTLY AT 20 MCQ/KG/MIN. PT STARTING TO MOVE EXT AND HEAD. NOT FOLLOWING INSTRUCTIONS. BILAT WRIST RESTRAINTS ON. PT GIVEN CHARCOAL VIA OG TUBE TWICE DURING THE NIGHT. SMALL EMESIS AFTER SECOND DOSE. DR LARA INTO SEE PT, PT WILL RECEIVE DIALYSIS AGAIN TODAY. UPDATE GIVEN TO POISON CONTROL THIS AM. CONT NAC FOR ANOTHER BAG REPEAT LABS 2HRS BEFORE THAT BAG COMPLETE. REPORT TO ON COMING NURSE.
[2020-06-15 06:27] LABS: Valproic Acid 137.7 ug/mL (50.0-100.0)
[2020-06-15 10:46] LABS: Valproic Acid 135.7 ug/mL (50.0-100.0)
--- NOTE | 2020-06-15 13:39 | NUR ---
REASSESSMENT PT REMAINS INTUBATED AND SEDATED. SEDATION HAD TO BE TURNED UP DURING DIALYSIS THIS MORNING BECAUSE EVERYTIME THE PT MOVED IT CAUSED PROBLEMS WITH THE MACHINE. PT STILL WITHDRAWING TO TACTILE STIMULI. PT WITHDRAWS FROM ORAL CARE, BUT NO GAG REFLEX NOTED. LUNGS ARE COARSE. THICK, OFFWHITE SPUTUM BEING SUCTIONED OUT. ST IN THE LOW 100S, BP STABLE. PT HAS ALREDY PUT OUT OVER 3L OF CLEAR, LIGHT YELLOW URINE THIS SHIFT. CONTINUING TO MONITOR.
[2020-06-15 15:15] LABS: Valproic Acid 85.7 ug/mL (50.0-100.0)
--- NOTE | 2020-06-15 15:22 | NUR ---
SEDATION VACATION SEDATION TURNED OFF AT 1420 AND PT STARTED WAKING UP QUICKLY. WITHIN 10 MINUTES SHE WAS FOLLOWING COMMANDS TO SQUEEZE HANDS AND OPEN HER MOUTH, BUT WOULDN'T OPEN HER EYES. SHE BECAME VERY AGITATED, THROWING HER LEGS OVER THE SIDE OF THE BED, TRYING TO SIT UP, TRYING TO TALK AROUND THE TUBE. TRIED TO STIMULATE A GAG REFLEX, BUT PT RESISTS, BLOCKING THE YANKAUER WITH HER TONGUE SO IT IS VERY DIFFICULT TO ASSESS. DR. MCCAULEY TO THE BEDSIDE. DECISION MADE TO LEAVE PT INTUBATED AND REASSESS IN THE MORNING. SEDATION RESTARTED AND PT RESTING COMFORTABLY.
--- NOTE | 2020-06-15 16:31 | NUR ---
SHIFT SUMMARY PT REMAINED SEDATED AND INTUBATED TODAY. SHE WOKE UP DURING HER SEDATION VACATION AND WAS FOLLOWING COMMANDS, BUT HER GAG WAS QUESTIONABLE. HER LUNGS ARE COARSE. LARGE AMTS NOW OF THICK OFF WHITE SPUTUM BEING SUCTIONED OUT. ST, BP STABLE. RECEIVED LAST DOSES OF ACTIVATED CHARCOAL. OF WAS HOOKED TO LIS LATE THIS MORNING AFTER PT HAD CHARCOAL COLORED GASTRIC CONTENTS COMING OUT OF HER MOUTH AROUND THE TUBES. OG CLAMPED RIGHT NOW AFTER LAST DOSE OF CHARCOAL GIVEN, THEN WILL HOOK BACK TO SUCTION AFTER 2 HOURS. LARGE AMTS OF URINE OUTPUT. PASSING GAS, BUT NO STOOL SO FAR. SPOKE WITH PT'S MOTHER AND PROVIDED UPDATE.
[2020-06-15 18:08] LABS: Valproic Acid 73.5 ug/mL (50.0-100.0)
--- NOTE | 2020-06-15 19:00 | NUR ---
ASSUMED CARE ASSUMED CARE OF PATIENT. RESTING QUIETLY WHEN UNDISTURBED. ROUSES EASILY TO VERBAL STIMULI. ORIENTED AND COOPERATIVE. SLOW VERBAL RESPONSE NOTED. VOICE IS WEAK. MOVES ALL EXTREMITIES WEAKLY. FOLLOWS COMMANDS. CONTINUES WITH C/O NECK PAIN- REPOSITIONED FOR COMFORT. MONITOR SHOWS NSR WITH FIRST DEGREE AV BLOCK, RATE 70s. BP STABLE- LEVOPHED AND VASOPRESSIN REMAIN OFF. FERGUSON PATENT AND DRAINING DARK YELLOW URINE. AFEBRILE. SEE ADMIT ASSESSMEMT FOR FULL ASSESSMENT.
--- NOTE | 2020-06-15 19:49 | NUR ---
22 CM AT TEETH
--- NOTE | 2020-06-15 20:30 | NUR ---
ASSUMED CARE: CONT INTUBATED, SEDATED AND RESTRAINED. EASILY AGITATED AND COUGHS W TURNING, SXN FOR WHITE SECRETIONS. PT INCONT OF LG AMT LIQUID, CHARCOAL STOOL. COMPLETE BEDBATH AND LINEN CHANGE. SKIN IS INTACT WO SIGN OF SORES/WOUNDS. CONT W PROPOFOL SEDATION, AND LAST BAG OF NAC INFUSION. FIO2 WAS DECREASED TO 21% PER RT. WILL CONT TO MONITOR.
[2020-06-15 22:01] LABS: International Normalized Ratio 1.26; Prothrombin Time Results 13.3 Sec (9.7-11.5)
[2020-06-15 22:03] LABS: Acetaminophen, Random <2.0 ug/mL (10.0-30.0); Alanine Aminotransfer (ALT/SGP 39 U/L (12-78); Albumin, Blood 2.1 g/dL (3.4-5.0); Albumin/Globulin Ratio 0.7 (0.8-1.8); Alk Phos 56 U/L (50-136); Aspartate Aminotrans (AST/SGOT 33 U/L (12-37); Bilirubin, Direct 0.2 mg/dL (0.0-0.3); Bilirubin, Indirect 0.5 mg/dL (0.1-0.7); Bilirubin, Total 0.7 mg/dL (0.1-1.0); Globulin, Blood 3.1 g/dL (2.2-4.0); Total Protein, Blood 5.2 g/dL (6.4-8.2); Valproic Acid 62.7 ug/mL (50.0-100.0)
[2020-06-16 03:55] LABS: BASOPHILS ABSOLUTE AUTO 0.03 K/mm3 (0.00-0.23); BASOPHILS PERCENT AUTO 0 % (0-2); EOSINOPHILS ABSOLUTE AUTO 0.01 K/mm3 (0.00-0.68); EOSINOPHILS PERCENT AUTO 0 % (0-6); Hemoglobin 12.7 g/dL (11.5-16.0); IMMATURE GRAN ABSOLUTE AUTO 0.06 K/mm3 (0.00-0.10); IMMATURE GRAN PERCENT AUTO 1 % (0-1); LYMPHOCYTES PERCENT AUTO 8 % (21-46); MONOCYTES ABSOLUTE AUTO 0.78 K/mm3 (0.16-1.47); MONOCYTES PERCENT AUTO 7 % (4-13); Mean Corpuscular HGB 32.3 pg (26.0-34.0); Mean Corpuscular HGB Conc 35.3 g/dL (31.5-36.5); Mean Corpuscular Volume 92 fL (80-100); Mean Platelet Volume 9.7 fL (9.1-12.4); NEUTROPHILS PERCENT AUTO 85 % (41-73); Platelet Count 154 K/mm3 (150-400); RDW Coefficient Variation 13.7 % (11.7-14.2); RDW Standard Deviation 46.3 fL (35.1-46.3); Red Blood Cell Count 3.93 M/mm3 (3.80-5.20); White Blood Cell Count 11.68 K/mm3 (4.00-11.30)
[2020-06-16 04:10] LABS: International Normalized Ratio 1.18; Prothrombin Time Results 12.5 Sec (9.7-11.5)
[2020-06-16 04:15] LABS: Acetaminophen, Random <2.0 ug/mL (10.0-30.0); Alanine Aminotransfer (ALT/SGP 38 U/L (12-78); Albumin/Globulin Ratio 0.7 (0.8-1.8); Alk Phos 61 U/L (50-136); Anion Gap 6 mmol/L (6-16); Aspartate Aminotrans (AST/SGOT 20 U/L (12-37); Bilirubin, Direct 0.2 mg/dL (0.0-0.3); Bilirubin, Indirect 0.4 mg/dL (0.1-0.7); Bilirubin, Total 0.6 mg/dL (0.1-1.0); Blood Urea Nitrogen 2 mg/dL (8-24); CO2, Blood 28 mmol/L (21-32); Calcium, Blood 8.1 mg/dL (8.5-10.1); Chloride, Blood 113 mmol/L (98-108); Glomerular Filtration Rate >60 (60-); Glucose, Blood 83 mg/dL (70-99); Magnesium, Blood 1.6 mg/dL (1.6-2.4); Phosphorus, Blood 2.8 mg/dL (2.5-4.9); Sodium, Blood 147 mmol/L (136-145); Valproic Acid 56.1 ug/mL (50.0-100.0)
[2020-06-16 04:19] LABS: Potassium, Blood 2.4 mmol/L (3.5-5.5)
[2020-06-16 05:26] LABS: PCO2 Arterial 31.9 mmHg (35-45); PO2 Arterial 57.3 mmHg (80-100); pH Blood Arterial 7.53 (7.35-7.45)
--- NOTE | 2020-06-16 06:10 | NUR ---
PT PROPOFOL DECREASED TO 20MCG/KG/MIN AND PLACED ON SPONT. JOON WELL, ABLE TO FOLLOW SIMPLE COMMANDS, SQUEEZING HANDS, RAISES HANDS OFF OF PILLOWS, BUT WILL NOT OPEN EYES TO COMMAND. RETURNED TO AC SETTINGS AND PROPOFOL RESUMED AT 45MCG. PHIL RT NOTIFIED DR MCCAULEY OF ABG RESULTS. PT HAD ONLY ONE OTHER STOOL TONOC, MUCH LESS VOLUME. NG DRAINAGE IS NOW BILIOUS. K-RIDER INFUSING.
--- NOTE | 2020-06-16 08:40 | NUR ---
ASSUMED CARE / DR MCCAULEY: REPORT RECEIVED FROM RITU Mclain RN. ASSUMED CARE OF THIS PT AT APPROX 0700. ON ASSESSMENT, THE PT IS SEDATED W/ PROPOFOL @ 45 MCG/KG/MIN. INTUBATED W/ 7.5 ETT. PER REPORT, WITH LIGHTENED SEDATION SHE IS FOLLOWING DIRECTIONS BUT NOT OPENING EYES. LS COARSE T/O, PT HAVING MOD AMNTS SPUTUM SUCTIONED THROUGH ETT. VENT SETTINGS: AC 14/350/5/21% W/ O2 SATS > 92%. MONITOR SHOWS SR W/ HR 80s, BP STABLE. OGT TO LIS W/ BLACK COLORED DRAINAGE R/T CHARCOAL ADMIN PER EMAR. TEMP FERGUSON PATENT/ DRAINING YELLOW URINE. SKIN CONDITION OVERALL INTACT, BLUE DISCOLORATION NOTED TO FINGERS & AROUND HEAD R/T PT's HAIR DYE. PROVIDER HAS BEEN AT BEDSIDE TO EVAL PT THIS AM. PLAN IS FOR EXTUBATION LATER THIS AM. THIS RN HAS SPOKEN W/ JENNIFER Mckeon, BRICK BURNER HEAD, ABOUT THE NEED FOR A 1:1 SITTER TO BE PRESENT AT BEDSIDE FOR THIS PT's EXTUBATION. DR MCCAULEY ALSO PLANS TO PLACE THE PT ON AN INVOLUNTARY HOLD R/T INTENTIONAL OD & SI. WILL CONTINUE TO MONITOR & UPDATE NEEDED.
[2020-06-16 09:28] LABS: Magnesium, Blood 1.7 mg/dL (1.6-2.4); Potassium, Blood 3.4 mmol/L (3.5-5.5)
--- NOTE | 2020-06-16 10:02 | NUR ---
ROOM MITIGATION UPDATE: ROOM HAS BEEN MITIGATED AT TIME OF PT's ADMISSION. THIS RN HAS REVIEWED THAT ROOM MITIGATION DOCUMENTATION CONTINUES TO REFLECT PHYSICAL ROOM TO ENSURE PT SAFETY. 1:1 SITTER WILL BE PRESENT AT BEDSIDE FOR PT EXTUBATION UNTIL PT MENTATION HAS CLEARED & SHE IS ABLE TO ANSWER [place] SI RISK QUESTIONS.
--- NOTE | 2020-06-16 10:45 | NUR ---
EXTUBATION / SUICIDE PRECAUTIONS: PT AWAKE, FOLLOWING DIRECTIONS & OVERALL CALM. SHE DOES BECOME SLIGHTLY ANXIOUS W/ INCREASED STIMULUS BUT IS MOSTLY REDIRECTABLE. VILLA Ferrera RT, NOTIFIED THAT PT IS READY FOR EXTUBATION. PT EXTUBATED AT 1030 & PLACED ON 2L NC W/ O2 SATS > 95%. LARGE AMNT THICK DUNCAN SECRETIONS SUCTIONED THROUGH ETT PRIOR TO EXTUBATION & PT HAS BEEN ABLE TO COUGH/ EXPECTORATE SMALL AMNTS SPUTUM SINCE EXTUBATION. RESTRAINTS REMOVED AT TIME OF EXTUBATION. SUICIDE PRECAUTIONS HAVE BEEN ADVANCED TO HIGH RISK W/ 1:1 SITTER AT BEDSIDE CURRENTLY. THE PT IS DROWSY OVERALL & UNABLE TO ANSWER QUESTIONS DEFINITIVELY. CIVIL RIGHTS HAVE BEEN READ & COPY PROVIDED TO THE PT. SHE IS NOW ON RA & TOLERATING WELL W/ O2 SATS > 92%.
--- NOTE | 2020-06-16 11:45 | NUR ---
Pt upset there is someone at her door. says it is unprofessional. Voice is still week from being extubated but will whisper as loud as she can when she is very upset. Pt also upset we took her dog. When explaied that the dog was never here and reminded her she was still in the hospital she said, as loud as she could "then why didn't you just say that" as she slammed her hands on her lap. PT asked for a police report. When I asked her what police report she closed her eyes shook her head and said we don't know anything. PT looking around the bed. When asked what she is looking for pt became angry and replied "some help." When asked what help she needs she mumbled something and wouldn't repeat it.
--- NOTE | 2020-06-16 13:42 | NUR ---
COMPASS VISIT: DHIRAJ, FROM [facility], HAS BEEN AT BEDSIDE TO SEE PT THIS AFTERNOON. RM FINK HAS ALSO BEEN AT BEDSIDE & ATTEMPTED TO COMPLETE SAFETY PLAN BUT HAS BEEN UNABLE R/T PT's CONFUSION.
--- NOTE | 2020-06-16 14:42 | NUR ---
DR PAVON: PROVIDER HAS BEEN AT BEDSIDE TO EVAL PT. SUICIDE RISK DECREASED FROM HIGH TO MODERATE. CENTRAL MONITORING HAS BEEN MADE AWARE & 1:1 SITTER HAS BEEN DISMISSED. ORDERS PLACED.
--- NOTE | 2020-06-16 17:59 | NUR ---
SHIFT SUMMARY: NO ACUTE CHANGES SINCE PRIOR UPDATES. PT REMAINS A&O TO SELF & FOLLOWING DIRECTIONS BUT IS OVERALL FORGETFUL. SHE IS HAVING SOME VISUAL HALLUCINATIONS & PARANOIA, THINKING THAT HER CAR IS BEING TOWED FROM THE PARKING LOT. THIS RN HAS REMINDED THE PT THAT SHE WAS BROUGHT IN VIA EMS & THAT HER CAR IS NOT PRESENT ON THE HOSPITAL GROUNDS. SHE REORIENTS EASILY TO THIS BUT WITHIN APPROX 5 MINS IS WORRIED ABOUT HER CAR AGAIN & ATTEMPTING TO GET OOB. LS COARSE T/O, PT HAS AUDIBLE RATTLING OF AIRWAY, STS THAT IT "HURTS TOO MUCH" TO COUGH HARD. SHE HAS BEEN ENCOURAGED TO HOLD A PILLOW TO HER CHEST & CONTINUE COUGHING SO THAT SECRETIONS WILL CLEAR & PNA WILL IMPROVE. PT ON RA W/ O2 SATS > 92%. MONITOR SHOWS SR-ST W/ HR 90-100s, BP STABLE. PT HAS NO GI COMPLAINTS & PASSED A BEDSIDE SWALLOW EVAL WHEN FULLY ALERT W/ NO AUDIBLE SECRETIONS NOTED IN THROAT. TEMP FERGUSON PATENT/ DRAINING DARK YELLOW-GREEN URINE. SKIN CONDITION OVERALL UNCHANGED & PT HAS REPOSITIONED HERSELF OR W/ THE HELP OF STAFF AT LEAST Q2H THIS SHIFT. WILL CONTINUE TO MONITOR & REPORT OFF TO ONCOMING RN.
--- NOTE | 2020-06-16 21:00 | NUR ---
ASSUMPTION OF CARE PT RESTING IN BED, AROUSES TO VERBAL STIMULI, ORIENTED TO SELF AND FOLLOWS DIRECTIONS. PT NEEDS RE-ORIENTATION TO LOCATION. PT HAVING CONVERSATIONS WITH SELF, VISUAL HALLUCINATIONS, STS HER BOYFRIEND VENKATESH IS IN THE ROOM. PT EASILY AGITATED, STS SHE WANTS TO LEAVE TO GO SMOKE A CIGARETTE, EXPLAINED NO-SMOKING POLICY, INVOLUNTARY HOLD AND OFFERED TO CALL PROVIDER FOR NICOTINE PATCH, PT DECLINED. PT ASKS WHAT WOULD HAPPEN IF SHE LEFT, EXPLAINED TO PT THAT THE POLICE WOULD BE CALLED AND PT WOULD BE BROUGHT BACK TO THE HOSPITAL. O2 SATURATIONS> 90% ON RA, MONITOR SHOWS SINUS RHYTHM WITH HR 90'S, BP STABLE. PT WITH WEAK COUGH BUT ABLE TO CLEAR OWN SECRETIONS. FERGUSON IN PLACE WITH GOOD URINE OUTPUT. TRIALYSIS PORT TO RIJ IN PLACE WITH LR @ 75ml/hr INFUSING PER INFUSION PORT. PT MODERATE RISK SI PER DR FULLER ASSESSMENT, BEING MONITORED VIA IN ROOM CAMERA, CONFIRMED WITH ROLLER STAKER.
--- NOTE | 2020-06-17 01:05 | NUR ---
AGITATION/PARANOIA/HALLUCINATIONS PT CONTINUES TO HAVE VISUAL HALLUCINATIONS, REPORTS SEEING HER PARENTS AND HER DOG IN HER ROOM AT TIMES. AGITATION CONTINUES, PT PULLING IV'S AND FERGUSON CATHETER, MULTIPLE ATTEMPTS TO GET OUT OF BED. PT IS PARANOID, THINKS THE STAFF IS TALKING ABOUT HER AND MAKING FUN OF HER. PT YELLING FROM ROOM AT TIMES. CALL PLACED TO DR NATH. NEW ORDER FOR 1MG ATIVAN IV Q6H PRN.
--- NOTE | 2020-06-17 01:45 | NUR ---
PT PULLED FERGUSON AGITATION CONTINUES, TO PTS ROOM AND FERGUSON HAD BEEN PULLED OUT, BALLOON IN TACT. CALL PLACED TO DR NATH, NEW ORDER FRO IV HALDOL AND BILAT SOFT WRIST RESTRAINTS.
[2020-06-17 04:06] LABS: BASOPHILS ABSOLUTE AUTO 0.03 K/mm3 (0.00-0.23); BASOPHILS PERCENT AUTO 0 % (0-2); EOSINOPHILS ABSOLUTE AUTO 0.08 K/mm3 (0.00-0.68); EOSINOPHILS PERCENT AUTO 1 % (0-6); Hemoglobin 11.1 g/dL (11.5-16.0); IMMATURE GRAN ABSOLUTE AUTO 0.06 K/mm3 (0.00-0.10); IMMATURE GRAN PERCENT AUTO 1 % (0-1); LYMPHOCYTES ABSOLUTE AUTO 1.08 K/mm3 (0.84-5.20); LYMPHOCYTES PERCENT AUTO 10 % (21-46); MONOCYTES ABSOLUTE AUTO 0.49 K/mm3 (0.16-1.47); MONOCYTES PERCENT AUTO 5 % (4-13); Mean Corpuscular HGB 32.5 pg (26.0-34.0); Mean Corpuscular HGB Conc 34.7 g/dL (31.5-36.5); Mean Corpuscular Volume 94 fL (80-100); Mean Platelet Volume 9.9 fL (9.1-12.4); NEUTROPHILS ABSOLUTE AUTO 9.08 K/mm3 (1.96-9.15); NEUTROPHILS PERCENT AUTO 84 % (41-73); Platelet Count 117 K/mm3 (150-400); RDW Coefficient Variation 13.8 % (11.7-14.2); RDW Standard Deviation 46.9 fL (35.1-46.3); Red Blood Cell Count 3.42 M/mm3 (3.80-5.20); White Blood Cell Count 10.82 K/mm3 (4.00-11.30)
[2020-06-17 04:21] LABS: Alanine Aminotransfer (ALT/SGP 31 U/L (12-78); Albumin, Blood 2.4 g/dL (3.4-5.0); Albumin/Globulin Ratio 0.7 (0.8-1.8); Alk Phos 65 U/L (50-136); Anion Gap 5 mmol/L (6-16); Aspartate Aminotrans (AST/SGOT 15 U/L (12-37); Bilirubin, Total 1.3 mg/dL (0.1-1.0); Blood Urea Nitrogen 8 mg/dL (8-24); Bun/Creatinine Ratio 18.6 (12.0-20.0); CO2, Blood 24 mmol/L (21-32); Calcium, Blood 8.6 mg/dL (8.5-10.1); Chloride, Blood 117 mmol/L (98-108); Creatinine, Blood 0.43 mg/dL (0.40-1.00); Globulin, Blood 3.3 g/dL (2.2-4.0); Glomerular Filtration Rate >60 (60-); Glucose, Blood 80 mg/dL (70-99); Magnesium, Blood 1.9 mg/dL (1.6-2.4); Phosphorus, Blood 2.1 mg/dL (2.5-4.9); Potassium, Blood 3.3 mmol/L (3.5-5.5); Sodium, Blood 146 mmol/L (136-145); Total Protein, Blood 5.7 g/dL (6.4-8.2)
[2020-06-17 05:48] LABS: Source, Urine Catheter
[2020-06-17 05:50] LABS: Appearance, Urine Clear (Clear); Bilirubin, Urine Neg (Neg); Blood, Urine 1+ (Neg); Color, Urine Yellow (P-Yellow); Glucose Qualitative, Urine Neg (Neg); Ketones, Urine 2+ (Neg); Leukocyte Esterase, Urine 1+ (Neg); Nitrite, Urine Neg (Neg); Protein, Urine Neg (Neg); Urobilinogen, Urine NORM (Normal)
[2020-06-17 06:08] LABS: Bacteria Few /hpf; Squamous Epithelial Cells Few /hpf (Few)
--- NOTE | 2020-06-17 06:39 | NUR ---
SHIFT SUMMARY PT MUCH LESS AGITATED AFTER ATIVAN AND HALDOL ADMINISTRATION. PT REMAINS AWAKE ALL NIGHT, VISUAL AND AUDITORY HALLUCINATIONS CONTINUE. PT REPORTS NEED TO VOID, INITIALLY REFUSED BEDPAN BUT LATER AGREED TO TRY BEDPAN. PT UNABLE TO VOID, BLADDER SCAN SHOWED 305ml, NEW ORDER FOR FERGUSON, PT TOLERATED WELL. AM LABS SHOWED LOW POTASSIUM AND PHOSPHORUS, NEW ORDER FOR 30mmol KPHOS, CURRENTLY INFUSING.
--- NOTE | 2020-06-17 07:15 | NUR ---
Assumed care of pt at 0700. Bedside report received from Breanna SHELTON. Pt is alert. Oriented to self. Answers questions. Follows commands. However, pt is confused and having visual and auditory hallucinations. Pt is in bilateral wrist restraints to prevent pulling of central line as pt pulled out imrza catheter during previous shift. Pt is on room air. Medical floor status with telemetry. ST per monitor with HR ranging from 100-105. New mirza catheter in place draining clear, yellow urine.
--- NOTE | 2020-06-17 07:15 | NUR ---
Dr Shultz in room. Clarified if he would like KCl given as KPhos is currently infusing. Provider states to hold KCL and recheck labs when KPhos is done
--- NOTE | 2020-06-17 10:59 | NUR ---
SVT Patient had an episode of SVT with HR in 160s and 170s, regular. Pt was not in distress during this episode. Provided a syringe to blow through to stimulate vagal response. Pt attempted to blow out plunger of syringe, as instructed, and this was effective at resolving SVT. Dr Ward notified. Orders given for echocardiogram. Discussed potassium replacement.
[2020-06-17 13:17] LABS: Magnesium, Blood 1.9 mg/dL (1.6-2.4); Phosphorus, Blood 3.8 mg/dL (2.5-4.9); Potassium, Blood 3.2 mmol/L (3.5-5.5)
--- NOTE | 2020-06-17 19:00 | NUR ---
ASSUMED CARE NOTE: ASSUMED CARE OF PT AT 1900, RECEVIED REPORT FROM PRICILA SHELTON. PT IS ALERT AND ORIENTED TO SELF, UNABLE TO STATE YEAR, TIME, PLACE. PT IS HAVING VISUAL AND AUDITORY HALLUCINATIONS. PT BECOMES AGITATED WITH CARE. HOWEVER, WAS ABLE TO PROVIDE ORAL CARE, AND TAMERA CARE, PT IS INCONTINENT OF URINE. PT IN SINUS RYTHYM WITH HR IN THE 80'S AT THIS TIME. HR ELEVATES TO 110 WITH AGITATION. BP STABLE. PT CONTINUES TO IN BILAT SWR TO PREVENT LINES FROM BRING PULLED. WILL CONTINUE TO MONTIOR PT T/O SHIFT.
--- NOTE | 2020-06-17 19:47 | NUR ---
SUMMARY Pt seems more cooperative after receiving geodon. Pt pulled mirza catheter while unrestrained for bath. Pt has refused oral care t/o shift. Pt accepts drinks of beverages however did not eat dinner. Pt was unrestrained for dinner, but stated she did not have an appetite. This RN in room while pt was unrestrained, for safety. Pt is no longer in suicide precautions. Pt has voided into bedpan since mirza has been removed. Urine is clear and yellow, no signs of blood. Pt had two episodes of SVT, both of which resolved with vagal manuver.
--- NOTE | 2020-06-18 06:11 | NUR ---
SHIFT SUMMARY: NO SIGNIFICANT CHANGES T/O SHIFT. PT CONTINUES TO HAVE HALLUCINATIONS. BECOMES AGITATED WITH CARE. PT GIVEN ATIVAN ONCE THIS SHIFT. PT IS ON RA WITH SPO2 ABOVE 90% NO RESP DISTRESS NOTED. BP STABLE T/O SHIFT. PT HAS BEEN IN SINUS RYTHYM WITH HR IN THE 70'S, HR ELEVATES TO 110 WITH AGITATION. PT HAS BEEN INCONTINENT OF URINE T/O SHIFT. NO BM THIS SHIFT. PT CONTINUES TO BE IN BILAT SWR, AND REMOTE MONITORING. PT HAS ATTEMPTED TO GET OUT OF BED A FEW TIMES AND HAS BEEN PULLING ON LINES. WILL CONTINUE TO MONITOR PT UNTIL REPORT IS GIVEN TO ONCOMING SHIFT.
[2020-06-18 06:30] LABS: Albumin, Blood 2.4 g/dL (3.4-5.0); Anion Gap 11 mmol/L (6-16); Blood Urea Nitrogen 7 mg/dL (8-24); Bun/Creatinine Ratio 17.9 (12.0-20.0); CO2, Blood 20 mmol/L (21-32); Calcium, Blood 8.7 mg/dL (8.5-10.1); Chloride, Blood 113 mmol/L (98-108); Creatinine, Blood 0.39 mg/dL (0.40-1.00); Glomerular Filtration Rate >60 (60-); Glucose, Blood 58 mg/dL (70-99); Phosphorus, Blood 3.8 mg/dL (2.5-4.9); Potassium, Blood 3.5 mmol/L (3.5-5.5); Sodium, Blood 144 mmol/L (136-145)
--- NOTE | 2020-06-18 06:56 | NUR ---
CALLED REGARDING LOW BLOOD SUGAR OF 58. 1/2 AMP OF D50 ORDERED.
--- NOTE | 2020-06-18 11:33 | NUR ---
AM NOTE... ASSUMED CARE OF PT AT 0700. PT IS VERY SLEEPY AT THIS TIME. VS STABLE L/S COARSE T/O ON RA. RR EVEN AND UNLABORED AT 16-18. PT IS IN NSR IN THE 80'S, NO EDEMA NOTED ON ASSESSMENT. PT HAS DIALYSIS CATH TO THE RIGHT NECK. BT PRESENT AND HYPOACTIVE, ABD IS SOFT AND NONTENDER TO PLALP. PT WOKE TO LOUD VERBAL STIMULI, SHE WAS ANXIOUS WANTING TO LEAVE SO "I CAN DO MY HOMEWORK" PT WAS REORIENTED TO PLACE AND SITUATION. PT ALSO WAS ASKING FOR HER DOG AND WAS UPSET THAT "THE HOSPITAL DIDN'T ALLOW DOGS TODAY BUT LET ME HAVE MY DOG YESTERDAY." PT DID NOT EAT HER BREAKFAST BUT DID DRINK MOST OF HER ENSURE. DR. LARA AT THE BEDSIDE THIS AM, GAVE VERBAL ORDERS TO D/C THE DIALYSIS CATH AND START CLINIMIX. PT WAS CONT OF URINE ASKING IF SHE COULD "GO PEE." PT WAS PLACED ON THE BEDPAN AND SHE WAS ABLE TO VOID. CALL LIGHT IN REACH WILL CONTINUE TO MONITOR.
--- NOTE | 2020-06-18 16:52 | NUR ---
PT UPDATE.... DIALYSIS CATH WAS REMOVED WNL. NO BLEEDING SWELLING OR HEMATOMA NOTED. PT'S VS STABLE. PT IS PLEASENT AND COOPERATIVE WITH CARE ALL SHIFT. CLINIMIX RUNNING PER ORDERS. WILL CONTINUE TO MONITOR.
--- NOTE | 2020-06-18 18:26 | NUR ---
SHIFT SUMMARY... NO ACUTE NEGATIVE CHANGES NOTED THIS SHIFT. PT HAS BEEN SLEEPING MOST OF THIS SHIFT. PT'S VS STABLE. DIALYSIS CATH WAS D/C'D THIS SHIFT WNL. NO SWELLING, BLEEDING OR HEMATOMA NOTED AT THE SITE. PT HAS BEEN CONT/INCONT OF URINE THIS SHIFT AND HAS NOT HAD A BM. PT HAS CLINIMIX RUNNING PER ORDERS. BED ALARM IS ON. WILL CONTINUE TO MONITOR UNTIL REPORT IS GIVEN TO ONCOMING RN.
--- NOTE | 2020-06-18 20:49 | NUR ---
ASSUMED CARE AT 1900/PT TRANSFERED PT TRANSFERED TO MEDICAL FLOOR ROOM 346 AT 2046. REPORT GIVEN TO FLORES SHELTON AT 2039. PT IS ALERT AND ORIENTED X4 AND ABLE TO MAKE HER NEEDS KNOWN; ALSO DROWSY AT THIS TIME. SPO2 >95% ON RA. HR 80'S. BP STABLE. CALL LIGHT WITHIN REACH, BED IN LOWEST POSITION, BED ALARM ON. CLINIMIX, AND INTRALIPIDS INFUSING AT THIS TIME.
--- NOTE | 2020-06-18 21:41 | NUR ---
TRANSFER NOTE HANDOFF REPORT RECEIVED FROM ICU PHONG LAZAR. PT TRANSFERED FROM ICU TO MED FLOOR VIA GURNEY. PT ORIENTED TO UNIT. CALL BUTTON WITHIN REACH. POSSESSIONS LOCKED IN ROOM CLOSET. CAMERA MONITORING IS ON AND FUNCTIONING.
--- NOTE | 2020-06-18 23:15 | NUR ---
VERIFIED VIDEO MONITORING VERIFIED CAMERA MONITOR IS ON AND FUNCTIONING. SEE PREVIOUS NOTE
--- NOTE | 2020-06-19 04:04 | NUR ---
SHIFT SUMMARY TRANSFER FROM ICU THIS SHIFT. ADMITTED FOR SI-OD. FULL CODE. CLINIMIX/LIPIDS INFUSING. ASPIRATON PNEUMONIA, IV ANTIBIOTICS ARE SCHEDULED. OBSERVE WHILE EATING, ASPIRATION PRECAUTIONS. PULMONARY HTN/CHF - DIURETICS ARE SCHEDULED. SOFT BITE SIZE DIET. NO RESTRAINTS UTILIZED THIS SHIFT. VIDEO MONITORING IS IN PLACE. PT WAS COOPERATIVE THIS SHIFT. WE DID USE A BEDPAN DUE TO HER SEVERE WEAKNESS. NO HALLUCINATIONS NOTED THIS SHIFT. [address]
[2020-06-19 05:22] LABS: BASOPHILS ABSOLUTE AUTO 0.05 K/mm3 (0.00-0.23); BASOPHILS PERCENT AUTO 1 % (0-2); EOSINOPHILS ABSOLUTE AUTO 0.23 K/mm3 (0.00-0.68); EOSINOPHILS PERCENT AUTO 3 % (0-6); Hemoglobin 13.1 g/dL (11.5-16.0); IMMATURE GRAN PERCENT AUTO 1 % (0-1); LYMPHOCYTES PERCENT AUTO 25 % (21-46); MONOCYTES ABSOLUTE AUTO 0.78 K/mm3 (0.16-1.47); MONOCYTES PERCENT AUTO 8 % (4-13); Mean Corpuscular HGB 31.6 pg (26.0-34.0); Mean Corpuscular HGB Conc 34.5 g/dL (31.5-36.5); Mean Corpuscular Volume 92 fL (80-100); Mean Platelet Volume 10.9 fL (9.1-12.4); NEUTROPHILS ABSOLUTE AUTO 5.88 K/mm3 (1.96-9.15); NEUTROPHILS PERCENT AUTO 63 % (41-73); Platelet Count 178 K/mm3 (150-400); RDW Coefficient Variation 13.1 % (11.7-14.2); RDW Standard Deviation 43.4 fL (35.1-46.3); Red Blood Cell Count 4.14 M/mm3 (3.80-5.20); White Blood Cell Count 9.34 K/mm3 (4.00-11.30)
[2020-06-19 05:46] LABS: Albumin, Blood 2.2 g/dL (3.4-5.0); Anion Gap 6 mmol/L (6-16); Blood Urea Nitrogen 8 mg/dL (8-24); Bun/Creatinine Ratio 17.5 (12.0-20.0); CO2, Blood 25 mmol/L (21-32); Calcium, Blood 8.6 mg/dL (8.5-10.1); Chloride, Blood 112 mmol/L (98-108); Creatinine, Blood 0.46 mg/dL (0.40-1.00); Glomerular Filtration Rate >60 (60-); Glucose, Blood 98 mg/dL (70-99); Magnesium, Blood 2.1 mg/dL (1.6-2.4); Phosphorus, Blood 5.1 mg/dL (2.5-4.9); Potassium, Blood 3.7 mmol/L (3.5-5.5); Sodium, Blood 143 mmol/L (136-145)
--- NOTE | 2020-06-19 16:47 | NUR ---
SHIFT SUMMARY PT [id number]. PLEASANT AND COOPERATIVE WITH CARE. REPORTS FEELING BETTER TODAY, AND DENIES ANY PREVIOUS OR CURRENT SUICIDE IDEATION. PT APPETITE INCREASED TODAY. CLINIMIX AND BG MONITORING DC'D PER DR BURNS. PLAN IS FOR DC TOMORROW TO HOME. PT STATES SHE IS READY TO DISCHARGE AND GET BACK TO HER COLLEGE CLASSES. USING WALKER WITH SBA FOR MILD GENERAL WEAKNESS. PT HAVING SOME URINE INCONTINENCE. ATTENDS IN PLACE. VITALS REVIEWED. C/O SORE RIBS AND BACK AND PAIN WITH COUGHING. MEDICATED PER EMAR AND HEAT PAD APPLIED WITH REPORTED RELIEF. PT CURRENTLY SHOWERING WITH SENIOR MAINTENANCE MECHANIC ASSIST. DENIES ANY NEEDS AT THIS TIME.
--- NOTE | 2020-06-20 04:21 | NUR ---
SHIFT SUMMARY NO ACUTE CHANGES THIS SHIFT. PT IS EXCITED TO DISCHARGE TODAY, STATES "I HOPE THAT I'M ABLE TO GO HOME SOMEWHAT EARLY IN THE DAY." MEDICATED X1 FOR COUGH OTHERWISE NO OTHER COMPLAINTS. PT IS HOPING FOR DOCTOR'S NOTE TO GIVE TO HER SCHOOL. 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 BED IN LOWERED POSITION WITH SIDE RAILS UP X2 FOR SAFETY CALL LIGHT AND PERSONAL ITEMS WITH IN REACH. NO APPARENT NEEDS OR DISTRESS AT THIS TIME WILL CONTINUE TO MONITOR UNTIL REPORT GIVEN TO DAY RN.
[2020-06-20 05:12] LABS: Hematocrit 40.8 % (33.0-51.0); Hemoglobin 14.2 g/dL (11.5-16.0)
[2020-06-20 05:38] LABS: Albumin, Blood 2.6 g/dL (3.4-5.0); Anion Gap 7 mmol/L (6-16); Blood Urea Nitrogen 10 mg/dL (8-24); Bun/Creatinine Ratio 20.6 (12.0-20.0); CO2, Blood 25 mmol/L (21-32); Calcium, Blood 9.6 mg/dL (8.5-10.1); Chloride, Blood 109 mmol/L (98-108); Creatinine, Blood 0.49 mg/dL (0.40-1.00); Glomerular Filtration Rate >60 (60-); Glucose, Blood 84 mg/dL (70-99); Phosphorus, Blood 4.4 mg/dL (2.5-4.9); Potassium, Blood 4.2 mmol/L (3.5-5.5); Sodium, Blood 141 mmol/L (136-145)
--- NOTE | 2020-06-20 08:09 | NUR ---
RN HAD A LONG DISCUSSION WITH PATIENT ABOUT HER CURRENT DISCHARGE SITUATION AND THE EVENTS THAT BROUHGT HER TO BE ADMITTED. SHE REPORTS THAT SHE DOES NOT REMEMBER ANY OF THE EVENTS THAT LED HER TO OVERDOSE AND THAT SHE TOLD HERSELF A LONG TIME AGO "I WOULD NEVER ATTEMPT SUICIDE BECAUSE IT DOESNT WORK" SHE IS HOPEFUL AND EXCITED ABOUT DISCHARGING AND IS HOPEFUL IT WILL BE TODAY. SHE HAS PLANS FOR WHERE SHE WILL LIVE AND GO TO SCHOOL TO BETTER HER LIFE. SHE IS IN VERY GOOD SPIRITS TODAY.
[2020-06-20] MEDS ORDERED: IBUP400 PO (12:17)
[2020-06-20] MEDS ORDERED: METO25 PO (12:18)
[2020-06-20] MEDS ORDERED: ZIPR60 PO (12:18)
--- NOTE | 2020-06-20 13:33 | NUR ---
PATIENT DC'D HOME VIA WHEELCHAIR. REPORTS NO CONCERNS OR QUESTIONS REGARDING DISCHARGE.
== END 2020-06-20 13:22 | disposition home or self-care (01) | DRG 917 ==
LOC: ER 16:38 → ERHOLD 20:34 → ICUW 20:34 → MEDS 06-18 20:54
PROVIDERS: Emergency Medicine; Internal Medicine; Internal Medicine Critical Care Medicine; Internal Medicine Nephrology; ADMIT Internal Medicine
PROC: 3E033XZ Introduction of Vasopressor into Peripheral Vein, Percutaneous Approach (ICD-10-PCS; principal; 2020-06-13)
PROC: 0BH18EZ Insertion of Endotracheal Airway into Trachea, Via Natural or Artificial Opening Endoscopic (ICD-10-PCS; 2020-06-13)
PROC: 5A1945Z Respiratory Ventilation, 24-96 Consecutive Hours (ICD-10-PCS; 2020-06-13)
PROC: 5A1D70Z Performance of Urinary Filtration, Intermittent, Less than 6 Hours Per Day (ICD-10-PCS; 2020-06-13)
DX: T42.6X2A Poisoning by other antiepileptic and sedative-hypnotic drugs, intentional self-harm, initial encounter (principal); G92 Toxic encephalopathy; J96.00 Acute respiratory failure, unspecified whether with hypoxia or hypercapnia; J69.0 Pneumonitis due to inhalation of food and vomit; E87.2 Acidosis; I50.32 Chronic diastolic (congestive) heart failure; G40.909 Epilepsy, unspecified, not intractable, without status epilepticus; E86.9 Volume depletion, unspecified; E87.6 Hypokalemia; E88.09 Other disorders of plasma-protein metabolism, not elsewhere classified; E78.00 Pure hypercholesterolemia, unspecified; E83.39 Other disorders of phosphorus metabolism; T39.1X2A Poisoning by 4-Aminophenol derivatives, intentional self-harm, initial encounter; F41.9 Anxiety disorder, unspecified; I11.0 Hypertensive heart disease with heart failure; I27.20 Pulmonary hypertension, unspecified; M81.0 Age-related osteoporosis without current pathological fracture; E78.5 Hyperlipidemia, unspecified; Z59.0 Homelessness; F17.210 Nicotine dependence, cigarettes, uncomplicated; F12.10 Cannabis abuse, uncomplicated; F31.9 Bipolar disorder, unspecified; Z86.718 Personal history of other venous thrombosis and embolism; Z98.51 Tubal ligation status; Z90.710 Acquired absence of both cervix and uterus; Z78.1 Physical restraint status; Z91.5 Personal history of self-harm
CPT/HCPCS: 31500; 36415; 36556; 36600; 51702; 70450; 71045; 74018; 80053; 80069; 80076; 80164; 81001; 82140; 82248; 82375; 82550; 82553; 82803; 82947; 83690; 83735; 84100; 84132; 84450; 84460; 85014; 85018; 85025; 85027; 85610; 87070; 87086; 87147; 87205; 93005; 93010; 93306; 94002; 94003; 96361-59; 96365-59; 96366-59; 96367-59; 96368; 96375; 99285-25; A9270; C1752; C9113; G0480; J0132; J0330; J1630; J1650; J2060; J2543; J2704; J3480; J7030; J7040; J7050; J7060; J7070; J7120